=== PATIENT | male | born 1960 | race Caucasian/White ===

== ENCOUNTER 2018-07-19 21:28 | Emergency (ER) | payer MEDICAID ==
[~2018-07-19] VITALS: Ht 172.7 cm; Wt 104.3 kg
[2018-07-19 21:59] LABS: BASOPHILS ABSOLUTE AUTO 0.04 K/mm3 (0.00-0.23); BASOPHILS PERCENT AUTO 1 % (0-2); EOSINOPHILS ABSOLUTE AUTO 0.14 K/mm3 (0.00-0.68); EOSINOPHILS PERCENT AUTO 2 % (0-6); Hemoglobin 14.6 g/dL (13.5-17.5); IMMATURE GRAN ABSOLUTE AUTO 0.02 K/mm3 (0.00-0.10); IMMATURE GRAN PERCENT AUTO 0 % (0-1); LYMPHOCYTES ABSOLUTE AUTO 1.29 K/mm3 (0.84-5.20); LYMPHOCYTES PERCENT AUTO 16 % (21-46); MONOCYTES ABSOLUTE AUTO 1.08 K/mm3 (0.16-1.47); MONOCYTES PERCENT AUTO 14 % (4-13); Mean Corpuscular HGB 32.2 pg (26.0-34.0); Mean Corpuscular HGB Conc 33.2 g/dL (31.5-36.5); Mean Corpuscular Volume 97 fL (80-100); Mean Platelet Volume 8.7 fL (9.1-12.4); NEUTROPHILS PERCENT AUTO 68 % (41-73); Platelet Count 209 K/mm3 (150-400); RDW Coefficient Variation 11.9 % (11.7-14.2); RDW Standard Deviation 42.5 fL (35.1-46.3); Red Blood Cell Count 4.53 M/mm3 (4.30-5.90); White Blood Cell Count 7.97 K/mm3 (4.00-11.30)
[2018-07-19 22:15] LABS: Calcium, Ionized (POC) 1.24 mmol/L (1.10-1.46); Chloride (POC) 103 mmol/L (98-108); Creatinine (POC) 0.6 mg/dL (0.8-1.3); Glucose (ISTAT POC) 95 mg/dL (70-99); Hemoglobin (POC) 14.3 g/dL (13.5-17.5); Potassium (POC) 4.2 mmol/L (3.5-5.5); Sodium (POC) 140 mmol/L (135-148); Total CO2 (POC) 24 mmol/L (21-32)
== END 2018-07-19 22:44 ==
LOC: ER 21:28
PROVIDERS: Emergency Medicine
DX: G62.9 Polyneuropathy, unspecified (principal); R53.1 Weakness; I10 Essential (primary) hypertension; E11.9 Type 2 diabetes mellitus without complications; F17.210 Nicotine dependence, cigarettes, uncomplicated; Z88.6 Allergy status to analgesic agent; Z88.8 Allergy status to other drugs, medicaments and biological substances
CPT/HCPCS: 36415; 80047; 85014; 85025; 93005; 93010; 99284-25

== ENCOUNTER 2024-01-02 13:23 | Emergency (ER) | payer MEDICARE, OTHER ==
[~2024-01-02] VITALS: Ht 177.8 cm; Wt 108.9 kg
[~2024-01-02 13:23] MED LIST: ALL DAY ALLERGY10 M1 PO; AMLO10 PO; ATOR40TA PO; CETI5 PO; CHOL10002 PO; CYCL10 PO; HYDCHL25 PO; Inderal40 MG PO; MELA3 PO; METF500C PO; OMEG1CAP30 PO; Omeprazole20 M1 PO; SERT100 PO; TADA10TA PO; TOPI100 PO; TRAZ50 PO
[2024-01-02 13:48] LABS: BASOPHILS ABSOLUTE AUTO 0.04 K/mm3 (0.00-0.23); BASOPHILS PERCENT AUTO 0 % (0-2); EOSINOPHILS ABSOLUTE AUTO 0.02 K/mm3 (0.00-0.68); EOSINOPHILS PERCENT AUTO 0 % (0-6); Hematocrit 46.6 % (37.0-53.0); Hemoglobin 16.3 g/dL (13.5-17.5); IMMATURE GRAN ABSOLUTE AUTO 0.08 K/mm3 (0.00-0.10); IMMATURE GRAN PERCENT AUTO 1 % (0-1); LYMPHOCYTES ABSOLUTE AUTO 0.88 K/mm3 (0.84-5.20); LYMPHOCYTES PERCENT AUTO 7 % (21-46); MONOCYTES ABSOLUTE AUTO 0.64 K/mm3 (0.16-1.47); MONOCYTES PERCENT AUTO 5 % (4-13); Mean Corpuscular HGB 31.3 pg (26.0-34.0); Mean Corpuscular Volume 89 fL (80-100); Mean Platelet Volume 8.8 fL (9.1-12.4); NEUTROPHILS ABSOLUTE AUTO 10.56 K/mm3 (1.96-9.15); NEUTROPHILS PERCENT AUTO 86 % (41-73); Platelet Count 273 K/mm3 (150-400); RDW Coefficient Variation 12.3 % (11.7-14.2); RDW Standard Deviation 39.8 fL (35.1-46.3); Red Blood Cell Count 5.21 M/mm3 (4.30-5.90); White Blood Cell Count 12.22 K/mm3 (4.00-11.30)
[2024-01-02 14:08] LABS: Albumin, Blood 4.4 g/dL (3.4-5.0); Albumin/Globulin Ratio 1.1 (0.8-1.8); Bilirubin, Total 0.5 mg/dL (0.1-1.0); Calcium, Blood 9.6 mg/dL (8.5-10.1); Creatinine, Blood 0.59 mg/dL (0.60-1.20); Globulin, Blood 3.9 g/dL (2.2-4.0); Total Protein, Blood 8.3 g/dL (6.4-8.2)
[2024-01-02] MEDS ORDERED: Ondansetron HCl 2 MG / ML 2ML Vial IV ONE (14:10)
[2024-01-02 14:30] LABS: Influenza A, PCR NEGATIVE (NEGATIVE); Influenza B, PCR NEGATIVE (NEGATIVE); Resp Syncytial Virus, PCR NEGATIVE (NEGATIVE); SARS-Cov-2 (COVID-19) PCR, MMC NEGATIVE (NEGATIVE)
[2024-01-02] MEDS ORDERED: SIME80CH PO (14:48)
[2024-01-02] MEDS ORDERED: MIRALAX11910 PO (14:50)
[2024-01-02] MEDS ORDERED: JARDIANCE25 MG PO (14:51)
[2024-01-02] MEDS ORDERED: METF500 PO (14:51)
[2024-01-02] MEDS ORDERED: LIDO700A20 TOP (14:51)
[2024-01-02] MEDS ORDERED: METO50ER PO (14:51)
[2024-01-02] MEDS ORDERED: AMLO10 PO (14:52)
[2024-01-02] MEDS ORDERED: LOSA50 PO (14:52)
[2024-01-02] MEDS ORDERED: SILD50TA PO (14:53)
[2024-01-02] MEDS ORDERED: DiphenhydrAMINE HCl 50 MG/ML 1ML Vial IV ONE (15:25)
[2024-01-02] MEDS ORDERED: NS 1,000 ML IV SCH (15:25)
[2024-01-02] MEDS ORDERED: Metoclopramide HCl 5MG / ML 2ML Vial IV ONE (15:25)
[2024-01-02] MEDS ORDERED: ONDA4ODT MM (16:04)
[2024-01-02 16:14] VITALS: BP 136/93
== END 2024-01-02 16:35 | disposition home or self-care (01) ==
LOC: ER 13:23
PROVIDERS: Student in an Organized Health Care Education/Training Program
DX: R11.2 Nausea with vomiting, unspecified (principal); R51.9 Headache, unspecified; E86.0 Dehydration; H53.9 Unspecified visual disturbance; Z88.6 Allergy status to analgesic agent; Z88.8 Allergy status to other drugs, medicaments and biological substances; Z79.899 Other long term (current) drug therapy; Z79.84 Long term (current) use of oral hypoglycemic drugs; E11.40 Type 2 diabetes mellitus with diabetic neuropathy, unspecified; I10 Essential (primary) hypertension; F17.210 Nicotine dependence, cigarettes, uncomplicated
CPT/HCPCS: 0241U; 70450; 71046; 80053; 83690; 83880; 85025; 93005; 93010; 96374; 96375; 99285-25; J1200; J2405; J2765; J7030